=== PATIENT | female | born 1970 | race Caucasian/White ===

== ENCOUNTER 2017-05-19 18:52 | Emergency (ER) | payer BC ==
[~2017-05-19] VITALS: Ht 162.6 cm; Wt 108.9 kg
--- NOTE | ~2017-05-19 | CR2 ---
[facility] A Service of [facility] RADIOLOGY TEXT RESULTS PATIENT: GLO CHINCHILLA LOCATION: SED : 70 UNIT #: [id number] AGE: [address]: Ethan Chowdhury MD SEX: F ORDER DR: [id number] [address] [id number] MR#: [id number] Acc #: [id number] NAME: GLO CHINCHILLA : 1970 SEX: F STUDY DATE/TIME: 05/19/2017 20:38 UNIT: SED ROOM: STUDY DESCRIPTION: CR Abdomen Acute Series Attending Physician: Ethan Chowdhury M.D. Ordering Physician: Ethan Chowdhury M.D. Primary Care Physician: Guy Mills M.D. MEDICAL IMAGING REPORT This report is preliminary unless electronic signature is present. EXAM Acute abdomen series 05/19/2017 HISTORY 46-year-old female with epigastric abdominal pain for 2 days. COMPARISON: Chest 09/27/2016 FINDINGS Frontal chest and 3 flat and upright views of the abdomen. 4 total images. The lungs and pleural spaces are clear. No pneumothorax. Heart size and mediastinum within normal limits. Pulmonary vasculature unremarkable. Bowel gas pattern is nonobstructive. No free intraperitoneal air. No pathologic calcifications. No acute bony abnormality. IMPRESSION No acute chest or abdominal findings Dictated by... Zane Crespo M.D. THIS IS AN ELECTRONICALLY VERIFIED REPORT Zane Crespo M.D. at 05/20/2017 4:13 PM ION/alana TD: 05/20/2017 10:42 JOB #: [id number] [facility] A Service [facility] RADIOLOGY TEXT RESULTS PATIENT: GLO CHINCHILLA LOCATION: SED : 70 UNIT #: [id number] AGE: [address]: Ethan Chowdhury MD SEX: F ORDER DR: MEDICAL IMAGING REPORT Page 1 of 1
[~2017-05-19 18:52] MED LIST: BACTRIM DS TABL1 TA1 PO; CIPRO PO; DESYREL50 M1 PO; LISINOPRIL PO; MECLIZINE HCL25 M1 PO; NO MEDICATIONS; PYRIDIUM PO; ULTRAM PO; WELLBUTRIN PO; XANAX0.5 MG PO; ZOLOFT PO
[2017-05-19] MEDS ORDERED: FLAGYL PO (19:26)
[2017-05-19] MEDS ORDERED: [UNRECOGNIZED DRUG - REMARK] (19:27)
[2017-05-19 20:32] LABS: BASOPHIL% 0.4 % (0-2.5); EOSINOPHIL# 0.1 X10e3 (0-0.7); EOSINOPHIL% 0.6 % (0.0-7.0); HEMATOCRIT 34.4 % (35.0-45.0); HEMOGLOBIN 11.8 gm/dL (12.0-16.0); LYMPHOCYTE# 2.1 X10e3 (1.0-3.5); LYMPHOCYTE% 19.1 % (17.0-45.0); MEAN CELL VOLUME 91.7 FL (83-96); MEAN CORPUSCULAR HEMOGLOBIN 31.6 PG (28-34); MEAN CORPUSCULAR HGB CONC 34.4 g/dL (30-36); MEAN PLATELET VOLUME 8.1 FL (6.5-11.5); MONOCYTE# 0.8 X10e3 (0-1.0); MONOCYTE% 7.1 % (3.0-12.0); NEUTROPHIL# 8.1 X10e3 (1.5-7.1); NEUTROPHIL% 72.8 % (40-75); PLATELET COUNT 271 X10e3 (140-420); RED BLOOD COUNT 3.75 X10e (3.90-5.30); RED CELL DISTRIBUTION WIDTH 12.9 % (11.0-15.5); WHITE BLOOD COUNT 11.1 X10e3 (4.0-10.5)
[2017-05-19 20:35] LABS: DIFF IND NO
[2017-05-19 20:49] LABS: ALBUMIN SERUM 3.7 g/dL (3.5-5.0); BILIRUBIN,TOTAL 0.5 mg/dL (0.2-2.0); BUN/CREATININE RATIO 12.85; CALCIUM SERUM 8.9 mg/dL (8.4-10.2); CREATININE SERUM 0.7 mg/dL (0.6-1.4); GLOM FILT RATE Estimated 103.9 mL/min (>60); POTASSIUM 3.4 mmol/L (3.5-5.1); PROTEIN TOTAL SERUM 7.3 g/dL (6.0-8.3)
[2017-05-27] MEDS ORDERED: NO MEDICATIONS (11:07)
== END 2017-05-19 21:53 | disposition home or self-care (01) ==
LOC: SED 18:52 → CED 20:05 → SED 20:05
DX: K80.50 Calculus of bile duct without cholangitis or cholecystitis without obstruction (principal); K21.9 Gastro-esophageal reflux disease without esophagitis; Z88.6 Allergy status to analgesic agent; Z88.8 Allergy status to other drugs, medicaments and biological substances
CPT/HCPCS: 36415; 74022; 80053; 83690; 84703; 85025; 96361; 96374; 96375; 99284; J2270; J2405

== ENCOUNTER → 2017-05-27 | Outpatient (CLI) | payer BC ==
[~2017-05-27] MED LIST changes: +FLAGYL PO; +[UNRECOGNIZED DRUG - REMARK]
[2017-05-27 12:13] LABS: HEMATOCRIT 35.7 % (35.0-45.0); HEMOGLOBIN 12.1 gm/dL (12.0-16.0); MEAN CELL VOLUME 92.4 FL (83-96); MEAN CORPUSCULAR HEMOGLOBIN 31.3 PG (28-34); MEAN CORPUSCULAR HGB CONC 33.9 g/dL (30-36); MEAN PLATELET VOLUME 7.7 FL (6.5-11.5); RED BLOOD COUNT 3.86 X10e (3.90-5.30); RED CELL DISTRIBUTION WIDTH 12.7 % (11.0-15.5); WHITE BLOOD COUNT 11.5 X10e3 (4.0-10.5)
[2017-05-27 12:42] LABS: ALBUMIN SERUM 3.6 g/dL (3.5-5.0); BILIRUBIN,TOTAL 0.2 mg/dL (0.2-2.0); BUN/CREATININE RATIO 18.57; CALCIUM SERUM 9.3 mg/dL (8.4-10.2); CREATININE SERUM 0.7 mg/dL (0.6-1.4); GLOM FILT RATE Estimated 103.9 mL/min (>60); POTASSIUM 4.6 mmol/L (3.5-5.1); PROTEIN TOTAL SERUM 6.9 g/dL (6.0-8.3)
== END | disposition home or self-care (01) ==
LOC: CAMB 10:49
PROVIDERS: Specialist
DX: Z01.812 Encounter for preprocedural laboratory examination (principal)
CPT/HCPCS: 36415; 80053; 85027